=== PATIENT | female | born 1950 | race Two or more races ===

== ENCOUNTER → 2025-08-25 | Outpatient (CLI) | payer MEDICAID, SELFPAY ==
--- NOTE | 2025-08-25 13:40 | XR_ITS ---
Examination: Bone densitometry Date and time of exam:August 25, 2025, 1345 hours INDICATIONS: Menopause age 47, diabetic Technique: Lumbar spine and hip total bone mineralization values of an calculated. Peak reference and age match control results have been displayed. Findings: Lumbar spine total bone mineralization is1.128 gm/cm2. This is 0.7 standard deviations above peak reference. This is 3.0 standard deviations above age-matched controls. Hip total bone mineralization is 0.994 gm/cm2 This is 0.2 standard deviations above peak reference. This is 1.9 standard deviations above age-matched controls Impression: There is normal mineralization based on lumbar spine measurements. There is osteopenia based on hip measurements
== END | disposition home or self-care (01) ==
PROVIDERS: Referring Provider Nurse Practitioner Family; Visit Provider Nurse Practitioner Family
DX: M85.88 Other specified disorders of bone density and structure, other site (principal)
CPT/HCPCS: 77080